=== PATIENT | male | born 1950 | race Hispanic/Latino ===

== ENCOUNTER → 2019-02-05 | Outpatient (CLI) | payer OTHER, MEDICARE | END | disposition home or self-care (01) | LOC: RAH 14:57 | PROVIDERS: ATTEND Internal Medicine | DX: G93.89 Other specified disorders of brain (principal); J32.9 Chronic sinusitis, unspecified; G31.9 Degenerative disease of nervous system, unspecified; D17.0 Benign lipomatous neoplasm of skin and subcutaneous tissue of head, face and neck | CPT/HCPCS: 70450 ==

== ENCOUNTER → 2019-03-26 | Outpatient (CLI) | payer OTHER, MEDICARE | END | disposition home or self-care (01) | LOC: LAB 10:45 | PROVIDERS: ATTEND Internal Medicine | DX: G93.89 Other specified disorders of brain (principal); R93.0 Abnormal findings on diagnostic imaging of skull and head, not elsewhere classified | CPT/HCPCS: 36415; 82565; 84520 ==

== ENCOUNTER → 2019-03-27 | Outpatient (CLI) | payer OTHER, MEDICARE ==
[~2019-03-27] MED LIST: GADODIAMIDE 10 MMOL/20 ML VIAL IV ONE
== END | disposition home or self-care (01) ==
LOC: RAH 07:45
PROVIDERS: ATTEND Internal Medicine
DX: G31.89 Other specified degenerative diseases of nervous system (principal); J32.1 Chronic frontal sinusitis; J32.2 Chronic ethmoidal sinusitis; R90.82 White matter disease, unspecified
CPT/HCPCS: 70553; A9579

== ENCOUNTER → 2023-12-24 | Outpatient (CLI) | payer MEDICARE | END | disposition home or self-care (01) | LOC: RAH 13:07 | DX: I70.203 Unspecified atherosclerosis of native arteries of extremities, bilateral legs (principal); G63 Polyneuropathy in diseases classified elsewhere | CPT/HCPCS: 93925 ==